=== PATIENT | female | born 1985 | race Asian ===

== ENCOUNTER 2016-11-04 09:46 | Emergency (ER) | payer OTHER ==
[~2016-11-04] VITALS: Ht 165.1 cm; Wt 77.1 kg
[2016-11-04 11:32] VITALS: BP 122/82
== END 2016-11-04 11:32 | disposition home or self-care (01) ==
LOC: ED 09:46
DX: S13.9XXA Sprain of joints and ligaments of unspecified parts of neck, initial encounter (principal); S09.90XA Unspecified injury of head, initial encounter; V43.53XA Car driver injured in collision with pick-up truck in traffic accident, initial encounter; Y93.89 Activity, other specified; Y99.8 Other external cause status; Y92.488 Other paved roadways as the place of occurrence of the external cause
CPT/HCPCS: Q0092

== ENCOUNTER 2016-12-12 09:38 | Emergency (ER) | payer OTHER ==
[~2016-12-12] VITALS: Ht 167.6 cm; Wt 79.1 kg
[2016-12-12 12:19] VITALS: BP 102/56
== END 2016-12-12 12:30 | disposition home or self-care (01) ==
LOC: ED 09:38
DX: S09.90XA Unspecified injury of head, initial encounter (principal); R51 Headache; R11.10 Vomiting, unspecified; R19.7 Diarrhea, unspecified; G40.909 Epilepsy, unspecified, not intractable, without status epilepticus; H53.149 Visual discomfort, unspecified; W50.0XXA Accidental hit or strike by another person, initial encounter; Y93.89 Activity, other specified; Y99.8 Other external cause status; Y92.89 Other specified places as the place of occurrence of the external cause
CPT/HCPCS: J1200; J2765